=== PATIENT | female | born 1945 | race Asian ===

== ENCOUNTER 2019-05-29 12:27 | Outpatient (CLI) | payer MEDICARE, OTHER | END 2019-05-29 23:59 | disposition home or self-care (01) | LOC: CFH 12:27 | PROVIDERS: ATTEND Internal Medicine Cardiovascular Disease | DX: I08.1 Rheumatic disorders of both mitral and tricuspid valves (principal); I11.9 Hypertensive heart disease without heart failure; R07.9 Chest pain, unspecified | CPT/HCPCS: 93306 ==

== ENCOUNTER 2020-06-08 09:57 | Day surgery (SDC) | payer MEDICARE, OTHER ==
[~2020-06-08] VITALS: Ht 157.5 cm; Wt 48.2 kg
[2020-06-08 10:20] VITALS: BP 152/89
[2020-06-08] MEDS ORDERED: GABA-826 PO (10:28)
[2020-06-08] MEDS ORDERED: AMIT25TA PO (10:28)
[2020-06-08] MEDS ORDERED: FAMO-79 PO (10:33)
[2020-06-08 10:53] LABS: BASOPHILS % (AUTO) 0 % (0-1); EOSINOPHILS % (AUTO) 2 % (1-7); LYMPHOCYTES % (AUTO) 21 % (22-44); MEAN CORPUSCULAR HEMOGLOBIN 32.8 pg (27.0-34.8); MEAN CORPUSCULAR HGB CONC 33.7 g/dL (32.4-35.8); MEAN PLATELET VOLUME 7.8 fL (7.4-10.4); MONOCYTES % (AUTO) 6 % (2-9); NEUTROPHILS % (AUTO) 72 % (42-75); PLATELET COUNT 246 x10^3/uL (130-400); RED BLOOD COUNT 4.46 x10^6/uL (3.82-5.3); RED CELL DISTRIBUTION WIDTH 13.7 % (9.6-15.2)
[2020-06-08 10:54] LABS: MD NO
[2020-06-08 11:03] LABS: INTERNATIONAL NORMALIZED RATIO 0.94 (0.93-1.1)
[2020-06-08 11:04] LABS: ANION GAP 5 mmol/L (5-15); CALCIUM 9.5 mg/dL (8.5-10.1); CHLORIDE 108 mmol/L (98-107)
[2020-06-08 11:05] LABS: CREATININE 1.01 mg/dL (0.55-1.02)
[2020-06-08] MEDS ORDERED: FENTANYL PF 100 MCG/2ML ONE (11:40)
[2020-06-08] MEDS ORDERED: MIDAZOLAM 1 MG/ML, 2ML ONE (11:40)
[2020-06-08] MEDS ORDERED: LIDOCAINE 2%, 20ML ONE (11:40)
[2020-06-08] MEDS ORDERED: METOPROLOL 1 MG/ML, 5ML ONE (12:08)
== END 2020-06-08 17:43 | disposition home or self-care (01) ==
LOC: CACL 09:57
PROVIDERS: ATTEND Internal Medicine Cardiovascular Disease
DX: R94.39 Abnormal result of other cardiovascular function study (principal); I25.10 Atherosclerotic heart disease of native coronary artery without angina pectoris; I10 Essential (primary) hypertension; E78.5 Hyperlipidemia, unspecified; I86.8 Varicose veins of other specified sites; Z88.8 Allergy status to other drugs, medicaments and biological substances; Z98.890 Other specified postprocedural states; Z79.899 Other long term (current) drug therapy
CPT/HCPCS: 36415; 80048; 85025; 85610; 85730; 93458; 99156; C1769; C1894; J2250; J3010; Q9967

== ENCOUNTER 2020-06-09 10:36 | Emergency (ER) | payer MEDICARE, OTHER ==
[~2020-06-09] VITALS: Ht 157.5 cm; Wt 52.3 kg
[~2020-06-09 10:36] MED LIST: AMIT25TA PO; FAMO-79 PO; GABA-826 PO
[2020-06-09] MEDS ORDERED: SODIUM CHLORIDE FLUSH 10ML SYR IVF ONE (11:30)
--- NOTE | 2020-06-09 11:36 | NUR ---
PT C/O CHEST PAIN AROUND 0915. PT STATES PAIN 8/10 THAT RADIATED DOWN LEFT ARM TO FINGERS AND JAW. PT HAD ANGIOGRAM YESTERDAY WITHOUT STENTING. PT STATES THIS WAS THE WORST EPISODE SHE HAS EXPERIENCED. PT STATES A SHORT BURST OF ACID REFLUX PAIN ALSO OCCURED. PT ALSO EXPERIENCED A HEADACHE. 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
[2020-06-09 11:45] LABS: BASOPHILS % (AUTO) 0 % (0-1); EOSINOPHILS % (AUTO) 2 % (1-7); LYMPHOCYTES % (AUTO) 12 % (22-44); MD NO; MEAN CORPUSCULAR HEMOGLOBIN 32.8 pg (27.0-34.8); MEAN CORPUSCULAR HGB CONC 34.1 g/dL (32.4-35.8); MONOCYTES % (AUTO) 7 % (2-9); NEUTROPHILS % (AUTO) 79 % (42-75); PLATELET COUNT 207 x10^3/uL (130-400); RED BLOOD COUNT 3.91 x10^6/uL (3.82-5.3); RED CELL DISTRIBUTION WIDTH 13.7 % (9.6-15.2)
[2020-06-09 11:56] LABS: ALANINE AMINOTRANSFERASE 29 U/L (12-78); ALBUMIN 3.5 g/dL (3.4-5.0); ANION GAP 4 mmol/L (5-15); CHLORIDE 107 mmol/L (98-107)
[2020-06-09 12:01] LABS: ALKALINE PHOSPHATASE 65 U/L (45-117); BILIRUBIN,TOTAL 0.6 mg/dL (0.2-1.0); CREATININE 1.02 mg/dL (0.55-1.02); TOTAL PROTEIN 7.2 g/dL (6.4-8.2); TROPONIN I 0.016 ng/mL (0.000-0.045)
[2020-06-09] MEDS ORDERED: MAALOX/HYOSCYAMINE/LIDOCAINE 45 ML BTL PO ONE (12:30)
--- NOTE | 2020-06-09 12:31 | NUR ---
KAREN PINEDA AT BEDSIDE FOR EVALUATION
[2020-06-09] MEDS ORDERED: MAALOX/HYOSCYAMINE/LIDOCAINE 45 ML BTL ONE (12:48)
--- NOTE | 2020-06-09 13:30 | NUR ---
PT RESTING IN BED, CALL LIGHT IN REACH,
--- NOTE | 2020-06-09 14:30 | NUR ---
PT RESTING IN BED, FAMILY AT BEDSIDE. NO CP
[2020-06-09 15:39] VITALS: BP 126/71
--- NOTE | 2020-06-09 15:40 | NUR ---
ER RUT HANKS AT BEDSIDE TO DISCUSS POC
[2020-06-09] MEDS ORDERED: OMNIPAQUE 350 MG/ML, 100ML BOTTLE ONE (16:07)
--- NOTE | 2020-06-09 17:15 | NUR ---
PT REC'VD DISCHARGE EDUCATION AND INSTRUCTIONS. PT HAD NO FURTHER QUESTIONS. PT AMBULATED TO DC AREA, STEADY GAIT.
== END 2020-06-09 17:59 | disposition home or self-care (01) ==
LOC: ED 14:40
DX: R10.13 Epigastric pain (principal); R07.89 Other chest pain; R06.00 Dyspnea, unspecified; R11.0 Nausea
CPT/HCPCS: 36415; 71045; 71275; 80053; 83690; 83880; 84484; 85025; 85379; 93005; 99285; Q9967